=== PATIENT | male | born 1995 | race Caucasian/White ===

== ENCOUNTER 2016-12-06 16:00 | Outpatient (RCR) | payer SELFPAY | END 2016-12-07 | LOC: M OUTALCOH 16:00 | PROVIDERS: ATTEND Psychiatry & Neurology Psychiatry | DX: F10.20 Alcohol dependence, uncomplicated (principal); F17.200 Nicotine dependence, unspecified, uncomplicated ==

== ENCOUNTER 2017-01-03 16:00 | Outpatient (RCR) | payer SELFPAY | END 2017-01-04 | LOC: M OUTALCOH 16:00 | PROVIDERS: ATTEND Psychiatry & Neurology Psychiatry | DX: F10.20 Alcohol dependence, uncomplicated (principal); F17.200 Nicotine dependence, unspecified, uncomplicated ==

== ENCOUNTER 2017-02-02 14:00 | Outpatient (RCR) | payer SELFPAY | END 2017-02-04 | LOC: M OUTALCOH 14:00 | PROVIDERS: ATTEND Psychiatry & Neurology Psychiatry | DX: Z13.9 Encounter for screening, unspecified (principal); F10.20 Alcohol dependence, uncomplicated; F17.200 Nicotine dependence, unspecified, uncomplicated ==

== ENCOUNTER 2017-02-10 14:00 | Outpatient (RCR) | payer SELFPAY | END 2017-03-06 | LOC: M OUTALCOH 14:00 | PROVIDERS: ATTEND Psychiatry & Neurology Psychiatry | DX: Z13.9 Encounter for screening, unspecified (principal); F10.20 Alcohol dependence, uncomplicated; F17.200 Nicotine dependence, unspecified, uncomplicated ==

== ENCOUNTER → 2018-01-22 | Outpatient (REF) | payer BC | LOC: M LAB REF 09:04 | DX: L02.811 Cutaneous abscess of head [any part, except face] (principal) | CPT/HCPCS: 87070; 87186 ==

== ENCOUNTER → 2018-02-23 | Outpatient (REF) | payer BC | LOC: M LAB REF 02-24 11:30 | DX: L02.811 Cutaneous abscess of head [any part, except face] (principal) | CPT/HCPCS: 87186 ==

== ENCOUNTER → 2018-03-28 | Outpatient (REF) | payer BC ==
[2018-03-28 21:25] LABS: CHLAMYDIA DNA AMPLIFICATION NEGATIVE (NEGATIVE); GC DNA AMPLIFICATION NEGATIVE (NEGATIVE)
[2018-03-29 10:14] LABS: HEPATITIS C VIRUS ABY INDEX < 0.0 INDEX (<0.8)
[2018-03-29 10:15] LABS: HIV 1&2 SCREEN CENTAUR NEGATIVE (NEGATIVE)
== END ==
LOC: M SFHCPLAZ 17:23
DX: Z71.1 Person with feared health complaint in whom no diagnosis is made (principal)
CPT/HCPCS: 86803

== ENCOUNTER 2020-12-25 22:29 | Inpatient (IN) | payer BC, OTHER ==
[~2020-12-25] VITALS: Ht 170.2 cm; Wt 70.1 kg
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
[2020-12-25] MEDS ORDERED: NS 1,000 ML IV ONE (23:00)
[2020-12-25 23:20] LABS: BASO % 0.2 % (0.0-1.0); EOS # 0.2 10^3/uL (0.0-0.5); EOS % 1.4 % (0.0-3.0); HEMATOCRIT 42.4 % (42.0-52.0); HEMOGLOBIN 14.4 g/dl (13.5-17.5); LYMPH # 1.7 10^3/uL (1.5-5.0); LYMPH % 13.4 % (24.0-44.0); MEAN CORPUSCULAR HEMOGLOBIN 29.4 pg (27.0-33.0); MEAN CORPUSCULAR VOLUME 86.5 fl (80.0-96.0); MONO # 1.1 10^3/uL (0.0-0.8); MONO % 8.9 % (2.0-8.0); NEUTROPHILS # 9.5 10^3/uL (1.5-8.5); NEUTROPHILS % 75.8 % (36.0-66.0); PLATELET COUNT, AUTOMATED 283 10^3/uL (150-450); WHITE BLOOD COUNT 12.6 10^3/uL (4.0-10.0)
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
[2020-12-25] MEDS ORDERED: VANCOMYCIN HCL 1,500 MG in IV FLUID PLACE HOLDER 1 EA IV ONE (23:45)
[2020-12-25 23:49] LABS: ERYTHROCYTE SEDIMENTATION RATE 27 mm/hr (0-15)
[2020-12-25] MEDS ORDERED: ISOVUE-370 76% 100ML VIAL As Ordered ONE (23:59)
--- NOTE | 2020-12-26 00:29 | REPVR ---
PROCEDURE INFORMATION: Exam: CT Thoracic Spine With Contrast Exam date and time: 12/25/2020 11:45 PM Age: 25 years old Clinical indication: Other: Open sore; Additional info: Superficial abscess, pls use contrast TECHNIQUE: Imaging protocol: Computed tomography images of the thoracic spine with intravenous contrast. Radiation optimization: All CT scans at this facility use at least one of these dose optimization techniques: automated exposure control; mA and/or kV adjustment per patient size (includes targeted exams where dose is matched to clinical indication); or iterative reconstruction. Contrast material: ISO; Contrast volume: 100 ml; Contrast route: INTRAVENOUS (IV); COMPARISON: No relevant prior studies available. FINDINGS: Vertebrae: Incomplete visualization of T1. The remaining thoracic segments are intact. Discs/Spinal canal/Neural foramina: No spinal or foraminal stenosis. Soft tissues: Unremarkable. IMPRESSION: 1. Incomplete visualization of T1. 2. Otherwise negative CT thoracic spine. No fracture or subluxation is evident and no spinal or foraminal stenosis. Electronically signed by: Mauricio Huff On 12/26/2020 00:29:20 AM
[2020-12-26] MEDS ORDERED: VANCOMYCIN HCL 750 MG, VIAL MATE ADAPTER 1 EACH in D5W 250 ML IV ONE ×4 (01:00)
[2020-12-26] MEDS ORDERED: MORPHINE 4 MG/ML 1ML VIAL/SYRINGE (J2270) IV ONE (01:45)
[2020-12-26] MEDS ORDERED: ACETAMINOPHEN TAB 650MG DOSE (2X325MG) PO PRN (03:00)
[2020-12-26] MEDS ORDERED: ANEXSIA, NORCO 7.5MG/325MG TABLET(HYDROCODONE/APAP) PO PRN (03:00)
[2020-12-26] MEDS ORDERED: ACETAMINOPHEN 325 MG TAB PO PRN (03:00)
[2020-12-26] MEDS ORDERED: MORPHINE 2 MG/ML 1ML VIAL (J2270) IV PRN (03:00)
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
[2020-12-26 03:45] VITALS: BP 117/77
[2020-12-26 04:08] LABS: BLOOD UREA NITROGEN 9 MG/DL (7-18); CALCIUM LEVEL 8.7 MG/DL (8.5-10.1); CARBON DIOXIDE LEVEL 25 MEQ/L (21-32); CHLORIDE LEVEL 104 MEQ/L (98-107); CREATININE FOR GFR 0.84 MG/DL (0.70-1.30); GLOMERULAR FILTRATION RATE > 60.0 (>60); GLUCOSE, FASTING 124 MG/DL (70-100); POTASSIUM SERUM 4.1 MEQ/L (3.5-5.1); SODIUM LEVEL 138 MEQ/L (136-145)
[2020-12-26 06:00] VITALS: BP 119/75
[2020-12-26 06:38] LABS: HEMATOCRIT 39.4 % (42.0-52.0); HEMOGLOBIN 13.4 g/dl (13.5-17.5); MEAN CORPUSCULAR HEMOGLOBIN 29.7 pg (27.0-33.0); MEAN CORPUSCULAR VOLUME 87.4 fl (80.0-96.0); PLATELET COUNT, AUTOMATED 279 10^3/uL (150-450); RED BLOOD COUNT 4.51 10^6/uL (4.30-6.10); WHITE BLOOD COUNT 13.2 10^3/uL (4.0-10.0)
[2020-12-26 07:06] LABS: BLOOD UREA NITROGEN 6 MG/DL (7-18); CALCIUM LEVEL 8.1 MG/DL (8.5-10.1); CARBON DIOXIDE LEVEL 27 MEQ/L (21-32); CHLORIDE LEVEL 103 MEQ/L (98-107); CREATININE FOR GFR 0.69 MG/DL (0.70-1.30); GLOMERULAR FILTRATION RATE > 60.0 (>60); GLUCOSE, FASTING 142 MG/DL (70-100); POTASSIUM SERUM 3.8 MEQ/L (3.5-5.1); SODIUM LEVEL 138 MEQ/L (136-145)
[2020-12-26] MEDS ORDERED: PROHANCE 279.3MG/ML 15ML VIAL As Ordered ONE (09:47)
[2020-12-26] MEDS: VANCOMYCIN HCL 1,000 MG, VIAL MATE ADAPTER 1 EACH in D5W 250 ML IV SCH ×2 (11:25→17:22)
[2020-12-26] MEDS: ENOXAPARIN 40MG/0.4ML SYRINGE (J1650 PER 10MG) SC SCH (11:28)
--- NOTE | 2020-12-26 11:40 | REP ---
INDICATION: abscess around T9-T10. Looking for osteo/septic arthris. COMPARISON: Comparison CT study December 26, 2020.. TECHNIQUE: Pre and post gadolinium enhanced MR imaging is acquired. T1 and T2 weighted scans are obtained with and without fat saturation. The gadolinium enhancement dose is 15 mL of intravenous ProHance. FINDINGS: There is a dorsal soft tissue mass with ill-defined margins in the subcutaneous fat layer and extending into and apparently through the overlying skin just to the right of midline at midthoracic spine level.. The area measures 3.8 cm in right to left dimension by 2.2 cm anterior to posterior by 4.8 cm cranial to caudal. There is no underlying bony involvement. Indeed the underlying paraspinal musculature shows normal signal intensity and contour although the edema extends nearly to its dorsal surface. On postcontrast images, lesion does not appear to enhance. I do not see a low T1 high T2 signal intensity center to suggest abscess. This may be a neoplasm eroding through the skin. Cortical and medullary bone signal intensity is normal. No evidence of disc protrusion or other cause of cord compression or spinal stenosis. There is no bony involvement identifiable. IMPRESSION: 3.8 x 2.2 x 4.8 cm soft tissue mass in the dorsal extra-spinal soft tissues. And no MR evidence of bony or muscle involvement. Neoplastic mass versus less likely abscess. <Electronically signed by Dez Chou > 12/26/20 [id number]
[2020-12-26 14:00] VITALS: BP 126/82
[2020-12-26] MEDS: KETOROLAC 30 MG/ML 1ML VIAL IV PRN (18:20)
[2020-12-26] MEDS: CEFEPIME HCL 2 GM in D5W MINI-BAG PLUS 50 ML IV SCH (19:37)
[2020-12-26] MEDS: metroNIDAZOLE 500 MG in IV 1 EA IV SCH (20:35)
[2020-12-26 22:00] VITALS: BP 138/86
[2020-12-27] MEDS: KETOROLAC 30 MG/ML 1ML VIAL IV PRN ×4 (00:28→23:54)
[2020-12-27] MEDS: VANCOMYCIN HCL 1,000 MG, VIAL MATE ADAPTER 1 EACH in D5W 250 ML IV SCH ×4 (01:17→18:49)
[2020-12-27] MEDS: metroNIDAZOLE 500 MG in IV 1 EA IV SCH ×3 (05:23→21:17)
[2020-12-27 06:00] VITALS: BP 112/64
[2020-12-27 06:05] LABS: HEMATOCRIT 39.8 % (42.0-52.0); HEMOGLOBIN 13.1 g/dl (13.5-17.5); MEAN CORPUSCULAR HEMOGLOBIN 29.2 pg (27.0-33.0); MEAN CORPUSCULAR HGB CONC 32.9 g/dl (32.0-36.5); MEAN CORPUSCULAR VOLUME 88.8 fl (80.0-96.0); PLATELET COUNT, AUTOMATED 294 10^3/uL (150-450); RED BLOOD COUNT 4.48 10^6/uL (4.30-6.10)
[2020-12-27 06:25] LABS: BLOOD UREA NITROGEN 8 MG/DL (7-18); CARBON DIOXIDE LEVEL 26 MEQ/L (21-32); CHLORIDE LEVEL 104 MEQ/L (98-107); CREATININE FOR GFR 0.67 MG/DL (0.70-1.30); GLOMERULAR FILTRATION RATE > 60.0 (>60); GLUCOSE, FASTING 126 MG/DL (70-100); SODIUM LEVEL 138 MEQ/L (136-145)
[2020-12-27] MEDS: ENOXAPARIN 40MG/0.4ML SYRINGE (J1650 PER 10MG) SC SCH (08:21)
[2020-12-27] MEDS: CEFEPIME HCL 2 GM in D5W MINI-BAG PLUS 50 ML IV SCH ×2 (08:21→20:30)
[2020-12-27] MEDS ORDERED: LIDOCAINE 1% MDV 20ML VIAL As Ordered ONE (12:59)
[2020-12-27] MEDS ORDERED: LIDOCAINE 1% MDV 20ML VIAL SC SCH (13:00)
[2020-12-27 14:00] VITALS: BP 123/78
--- NOTE | 2020-12-27 17:50 | CR ---
CONSULTATION DATE: 12/27/2020 REQUESTING PHYSCIAN: Dr. Pacheco. REASON FOR CONSULTATION: Abscess of the mid-back. HISTORY OF PRESENT ILLNESS: The patient is a 25-year-old man with a history of use of intravenous heroin. He presented to the emergency department on December 26, 2020 complaining of pain in his mid-back. He reported that there had been a raised tender area develop over several days. He had his friend puncture this and it has been draining a small amount since. He has been using some antibiotic cream, but it has not improved. In the emergency room (ER), he had laboratory studies obtained that showed a white count of 12,[address] scan and MRI obtained that showed a thickened area of inflammation about 3 cm across underlying the inflamed skin. I was asked to evaluate the patient for possible incision and drainage. ALLERGIES: Patient has no reported allergies to drugs. HOME MEDICATIONS: Patient is on no reported prescription medications. He has been using some heroin and methamphetamine. SURGICAL HISTORY: Significant for: 1. Left knee meniscus surgery. 2. Some sutures in his right bowling. PHYSICAL EXAMINATION: Reveals a fairly fit appearing young man who appears somewhat uncomfortable. SKIN: Warm and dry. HEART EXAM: Shows a regular rate and rhythm. LUNGS: Clear. EXAMINATION OF THE BACK: Reveals an approximately 5 x 3.5 cm raised reddened area just to the right of the midline underlying a portion of a tattoo covering the central portion of his back. There are multiple small pustules noted on the skin with areas of skin erosion and sloughing. There is not discreet fluctuance in the center of this area, but it is quite raised, suggesting an underlying abscess. LABORATORY STUDIES: This morning showed a white count of 15,000 (which is slightly raised from 13,000 yesterday), hemoglobin 13, hematocrit 40, platelet count 294,000. Chemistry profile is normal other than a slight elevation in the fasting glucose to 126. IMPRESSION: Skin infection of mid-back with multiple small surface pustules with probable underlying abscess. PLAN: I have recommended to the patient that we proceed with incision and drainage of this area. I suspect it will drain better and heal faster if it is drained. He was counseled regarding the potential risks of the drainage and he had an opportunity to ask questions. He desires to proceed with the drainage and this will be performed today. DEYANIRA
[2020-12-27 22:00] VITALS: BP 129/74
[2020-12-28] MEDS: VANCOMYCIN HCL 1,000 MG, VIAL MATE ADAPTER 1 EACH in D5W 250 ML IV SCH ×4 (01:56→18:57)
[2020-12-28] MEDS: metroNIDAZOLE 500 MG in IV 1 EA IV SCH ×2 (04:09→14:26)
[2020-12-28 06:00] VITALS: BP 132/81
[2020-12-28 06:05] LABS: HEMATOCRIT 38.5 % (42.0-52.0); HEMOGLOBIN 12.9 g/dl (13.5-17.5); MEAN CORPUSCULAR HEMOGLOBIN 29.7 pg (27.0-33.0); MEAN CORPUSCULAR HGB CONC 33.5 g/dl (32.0-36.5); MEAN CORPUSCULAR VOLUME 88.7 fl (80.0-96.0); PLATELET COUNT, AUTOMATED 306 10^3/uL (150-450); RED BLOOD COUNT 4.34 10^6/uL (4.30-6.10); WHITE BLOOD COUNT 10.8 10^3/uL (4.0-10.0)
[2020-12-28 06:22] LABS: BLOOD UREA NITROGEN 10 MG/DL (7-18); CALCIUM LEVEL 8.2 MG/DL (8.5-10.1); CARBON DIOXIDE LEVEL 26 MEQ/L (21-32); CHLORIDE LEVEL 106 MEQ/L (98-107); CREATININE FOR GFR 0.65 MG/DL (0.70-1.30); GLOMERULAR FILTRATION RATE > 60.0 (>60); GLUCOSE, FASTING 108 MG/DL (70-100); POTASSIUM SERUM 4.1 MEQ/L (3.5-5.1); SODIUM LEVEL 138 MEQ/L (136-145)
[2020-12-28] MEDS: CEFEPIME HCL 2 GM in D5W MINI-BAG PLUS 50 ML IV SCH (08:28)
[2020-12-28] MEDS: ENOXAPARIN 40MG/0.4ML SYRINGE (J1650 PER 10MG) SC SCH (08:28)
--- NOTE | 2020-12-28 09:17 | IPN ---
PROGRESS NOTE DATE: 12/28/2020 HISTORY: The patient underwent an incision and drainage of an abscess on the back. He had multiple superficial nearly confluent pustules which were causing areas of skin breakdown with large area of underlying swelling. Vital signs: He has been afebrile over the past 24 hours. His pulse has been in the low 100s but is 86 this morning. Blood pressure is good. Intake and output shows excellent oral intake and urine output. Patient has a dressing over the back wound. He complains of some soreness but it is not unbearable. LABORATORY DATA: This morning, the patient's white blood cell count is 11 which is down from 15 yesterday, hemoglobin 13 with a hematocrit of 38 and the platelet count is 306,000. Chemistry profile is unchanged from the last several days. Microbiology shows that he is growing Staph aureus from his wound culture. IMPRESSION: Patient is showing some improvement with drop in his white blood cell count after incision and drainage of his back abscess. He is growing Staph on preliminary culture and the sensitivities are pending. RECOMMENDATIONS: At this point, I would monitor for the sensitivities on his Staph and adjust his antibiotics accordingly. He will need to continue the local wound probably for a week or two until his wound heals. I will reassess his wound tomorrow. DEYANIRA
[2020-12-28 14:00] VITALS: BP 120/60
[2020-12-28] MEDS: KETOROLAC 30 MG/ML 1ML VIAL IV PRN (16:47)
--- NOTE | 2020-12-28 19:46 | IPNPDOC ---
Date Seen The patient was seen on 12/27/20. Progress Note SUBJECTIVE: Patient comfortable in bed, continues to have back pain and drainage from open wound. No other complaints at this time. PHYSICAL EXAMINATION: VITAL SIGNS: Please see below. GENERAL: No distress HEENT: Normocephalic, atraumatic, moist mucous membranes NECK: Supple CARDIOVASCULAR EXAMINATION: S1, S2, no murmurs RESPIRATORY EXAMINATION: Clear to auscultation, no wheezing ABDOMINAL EXAMINATION: Soft, nontender, nondistended, positive bowel sounds BACK: Large erythematous wound located in the mid thoracic area, raised, with a 2-3 cm opening, apparently drainage, significant tenderness to palpation. EXTREMITIES: Range of motion intact SKIN: No rash NEUROLOGICAL EXAMINATION: Alert and oriented 3, no focal deficits PSYCHIATRIC EXAMINATION: Calm and cooperative LABORATORY DATA, IMAGING STUDIES, MICROBIOLOGY: Please see below. ASSESSMENT AND PLAN: 25-year-old male with past medical history of IV drug use is admitted for cellulitis and abscess in his back. PROBLEMS: 1. Cellulitis with abscess: Located over her mid back Empiric antibiotics, vancomycin, cefepime and Flagyl. Surgery consulted for I&D. Blood cultures pending Pain control 2. IV drug use. Uses heroin and methamphetamines. No signs of withdrawal at this time. DVT prophylaxis: Lovenox GI prophylaxis: Not needed VS, I&O, 24H, Fishbone Vital Signs/I&O Vital Signs Date Time Temp Pulse Resp B/P (MAP) Pulse Ox O2 Delivery O2 Flow Rate FiO2 12/28/20 14:00 98.5 95 18 120/60 (80) 100 Room Air I&O- Last 24 Hours up to 6 AM 12/28/20 06:00 Intake Total 4120 ml Output Total 1425 ml Balance 2695 ml Laboratory Data 24H LABS Laboratory Tests 2 12/28/20 00:15: 12/28/20 05:37: Nucleated Red Blood Cells % (auto) 0.0, Anion Gap 6L, Glomerular Filtration Rate > 60.0, Calcium Level 8.2L CBC/BMP Laboratory Tests 12/28/20 05:37 Microbiology Microbiology 12/27/20 Gram Stain - Final, Resulted 12/27/20 Wound Culture - Preliminary, Resulted Staphylococcus Aureus 12/26/20 Respiratory Virus Panel (PCR) ([facility]) - Final, Complete 12/25/20 Blood Culture - Preliminary, Resulted No Growth after 48 hours. All Specime... 12/25/20 Blood Culture - Preliminary, Resulted No Growth after 48 hours. All Specime... HEBERT PAGE MD Dec 28, 2020 19:46
--- NOTE | 2020-12-28 19:48 | IPNPDOC ---
Date Seen The patient was seen on 12/28/20. Progress Note SUBJECTIVE: Patient comfortable in bed, underwent I&D by general surgery yesterday, no new complaints at this time, tolerating diet. PHYSICAL EXAMINATION: VITAL SIGNS: Please see below. GENERAL: No distress HEENT: Normocephalic, atraumatic, moist mucous membranes NECK: Supple CARDIOVASCULAR EXAMINATION: S1, S2, no murmurs RESPIRATORY EXAMINATION: Clear to auscultation, no wheezing ABDOMINAL EXAMINATION: Soft, nontender, nondistended, positive bowel sounds BACK: Dressing noted over wound, underwent I&D. EXTREMITIES: Range of motion intact SKIN: No rash NEUROLOGICAL EXAMINATION: Alert and oriented 3, no focal deficits PSYCHIATRIC EXAMINATION: Calm and cooperative LABORATORY DATA, IMAGING STUDIES, MICROBIOLOGY: Please see below. ASSESSMENT AND PLAN: 25-year-old male with past medical history of IV drug use is admitted for cellulitis and abscess in his back. PROBLEMS: 1. Cellulitis with abscess: Located over her mid back, status post I&D by general surgery. Wound cultures growing staph aureus. De-escalate antibiotics to vancomycin. Blood cultures negative to date Pain control 2. IV drug use. Uses heroin and methamphetamines. No signs of withdrawal at this time. DVT prophylaxis: Lovenox GI prophylaxis: Not needed VS, I&O, 24H, Fishbone Vital Signs/I&O Vital Signs Date Time Temp Pulse Resp B/P (MAP) Pulse Ox O2 Delivery O2 Flow Rate FiO2 12/28/20 14:00 98.5 95 18 120/60 (80) 100 Room Air l I&O- Last 24 Hours up to 6 AM 12/28/20 06:00 Intake Total 4120 ml Output Total 1425 ml Balance 2695 ml Laboratory Data 24H LABS Laboratory Tests 2 12/28/20 00:15: 12/28/20 05:37: Nucleated Red Blood Cells % (auto) 0.0, Anion Gap 6L, Glomerular Filtration Rate > 60.0, Calcium Level 8.2L CBC/BMP Laboratory Tests 12/28/20 05:37 Microbiology Microbiology 12/27/20 Gram Stain - Final, Resulted 12/27/20 Wound Culture - Preliminary, Resulted Staphylococcus Aureus 12/26/20 Respiratory Virus Panel (PCR) ([facility]) - Final, Complete 12/25/20 Blood Culture - Preliminary, Resulted No Growth after 48 hours. All Specime... 12/25/20 Blood Culture - Preliminary, Resulted No Growth after 48 hours. All Specime... HEBERT PAGE MD Dec 28, 2020 19:48
[2020-12-28 22:00] VITALS: BP 122/58
[2020-12-29] MEDS: VANCOMYCIN HCL 1,000 MG, VIAL MATE ADAPTER 1 EACH in D5W 250 ML IV SCH ×2 (00:40→06:48)
[2020-12-29 06:00] VITALS: BP 136/70
[2020-12-29 06:01] LABS: HEMATOCRIT 39.3 % (42.0-52.0); HEMOGLOBIN 12.9 g/dl (13.5-17.5); MEAN CORPUSCULAR HEMOGLOBIN 29.3 pg (27.0-33.0); MEAN CORPUSCULAR HGB CONC 32.8 g/dl (32.0-36.5); MEAN CORPUSCULAR VOLUME 89.1 fl (80.0-96.0); PLATELET COUNT, AUTOMATED 377 10^3/uL (150-450); RED BLOOD COUNT 4.41 10^6/uL (4.30-6.10); WHITE BLOOD COUNT 7.9 10^3/uL (4.0-10.0)
[2020-12-29 06:33] LABS: BLOOD UREA NITROGEN 7 MG/DL (7-18); CALCIUM LEVEL 8.2 MG/DL (8.5-10.1); CARBON DIOXIDE LEVEL 26 MEQ/L (21-32); CHLORIDE LEVEL 106 MEQ/L (98-107); CREATININE FOR GFR 0.63 MG/DL (0.70-1.30); GLOMERULAR FILTRATION RATE > 60.0 (>60); GLUCOSE, FASTING 98 MG/DL (70-100); POTASSIUM SERUM 4.5 MEQ/L (3.5-5.1); SODIUM LEVEL 140 MEQ/L (136-145); VANCOMYCIN LEVEL TROUGH 12.8 UG/ML (10.0-20.0)
[2020-12-29] MEDS ORDERED: LINEZOLID 600MG TABLET (ZYVOX) PO SCH (09:00)
--- NOTE | 2020-12-29 09:19 | RO ---
OPERATIVE NOTE DATE OF OPERATION: 12/27/2020 PREOPERATIVE DIAGNOSIS: Back abscess. POSTOPERATIVE DIAGNOSIS: Back abscess. PROCEDURE: Incision and drainage of abscess of mid back SURGEON: Siva Candelario MD RESPIRATORY ASSISTANT: ANESTHESIA: 1% lidocaine, local. INDICATION FOR THE PROCEDURE: The patient is a 25-year-old man who had over approximately 4 to 5 days developed a raised infected area on the upper mid back just to the right of the midline. This had become quite painful and he presented to the emergency department for evaluation. Examination shows multiple small nearly confluent pustules on the surface with areas of skin breakdown. There is a significant raised area about 3 to 4 cm in diameter with marked redness and tenderness consistent with an underlying abscess. He is now for incision and drainage. DESCRIPTION OF PROCEDURE: The patient was placed into a left lateral decubitus position. The area was prepped with Betadine. Local anesthesia was achieved transversely across the center of the lesion with 1% Xylocaine. An approximately 2 to 2.5 cm transverse incision was made with an 11 blade. There was some release of purulent fluid. The wound was wicked with a small piece of Betadine gauze. A Culturette was obtained for culture and sensitivity. The patient tolerated the procedure well. A bulky bandage was applied.
[2020-12-29] MEDS: KETOROLAC 30 MG/ML 1ML VIAL IV PRN (09:46)
[2020-12-29] MEDS: ENOXAPARIN 40MG/0.4ML SYRINGE (J1650 PER 10MG) SC SCH (09:54)
--- NOTE | 2020-12-29 10:28 | IPNPDOC ---
Text Note Date of Service The patient was seen on 12/29/20. NOTE General Surgery Dr Candelario. The patient is a 25-year-old male status post I&D of abscess on the mid back 12/27/[address] Candelario. Afebrile, VSS. The patient is sitting up in bed eating breakfast. Lungs clear to auscultation S1-S2 regular rate and rhythm Foam dressing intact over wound mid back, yellowish drainage noted, still with surrounding erythema and tenderness with palpation. 12/27/20 WC MRSA A/P. S/P I/D Mid back abscess. Wound Culture MRSA. Pt transitioned to po Zyvox as per Hospitalist. Continue with wound care. Monitor. VS,Fishbone, I+O VS, Fishbone, I+O Laboratory Tests 12/29/20 05:48 Vital Signs Date Time Temp Pulse Resp B/P (MAP) Pulse Ox O2 Delivery O2 Flow Rate FiO2 12/29/20 06:00 98.0 87 18 136/70 (92) 100 12/28/20 14:00 Room Air I&O- Last 24 Hours up to 6 AM 12/29/20 05:59 Intake Total 3720 ml Output Total 475 ml Balance 3245 ml Attending Note Attending Note Patient had I and D 12/27. C and S today confirms MRSA. PEx shows wound open with significant breakdown along wound edges from multiple small abscesses. WBC normal. Has responded well overall. Wound will likely be slow to heal given degree of local skin breakdown. Antibiotics and discharge per hospitalist. Shu Rosario Dec 29, 2020 10:28 Siva Candelario Dec 29, 2020 22:04
[2020-12-29] MEDS ORDERED: LINE1TAB6 PO (10:49)
--- NOTE | 2020-12-29 11:02 | DS.PDOC ---
Discharge Summary General Date of Admission Dec 26, 2020 at 02:44 Date of Discharge 12/29/20 Attending Physician: HEBERT PAGE MD Discharge Summary PROCEDURES PERFORMED DURING STAY: None. ADMITTING DIAGNOSES: 1. Cellulitis with abscess of mid back, IV drug use. DISCHARGE DIAGNOSES: 1. Cellulitis with abscess of mid back, IV drug use. COMPLICATIONS/CHIEF COMPLAINT: Abscess Of Back,Sepsis. HISTORY OF PRESENT ILLNESS: 25-year-old male with past medical history of IV drug use is admitted for cellulitis and abscess over his mid back. He reports injecting himself with heroin and methamphetamines, noticed a bump on his back which was drained by his friend at home. Pain is swelling continued to worsen with persistent drainage, so he presented to the hospital. Imaging consistent with cellulitis and underlying abscess. General surgery was consulted for I&D. Patient had I&D performed with improvement in pain. Wound cultures are positive for MRSA. Patient is hemodynamically stable today and agrees to follow-up closely with PCP and general surgery in the outpatient setting. The importance of completing his antibiotic regimen and outpatient follow-up were emphasized multiple times, patient understands and agreeable at this time. Patient will be discharged home on Zyvox 600 mg by mouth twice a day, will require a minimum of 2 weeks of antibiotics. Further assessment/duration of antibiotics to be determined by PCP/general surgery on outpatient assessment. If Zyvox is not covered by his insurance, then patient will be discharged on Bactrim. HOSPITAL COURSE: As above. DISCHARGE MEDICATIONS: Please see below. ALLERGIES: Please see below. PHYSICAL EXAMINATION: VITAL SIGNS: Please see below. GENERAL: No distress HEENT: Normocephalic, atraumatic, moist mucous membranes NECK: Supple CARDIOVASCULAR EXAMINATION: S1, S2, no murmurs RESPIRATORY EXAMINATION: Clear to auscultation, no wheezing ABDOMINAL EXAMINATION: Soft, nontender, nondistended, positive bowel sounds EXTREMITIES: Range of motion intact SKIN: No rash NEUROLOGICAL EXAMINATION: Alert and oriented 3, no focal deficits PSYCHIATRIC EXAMINATION: Calm and cooperative LABORATORY DATA: Please see below. IMAGING: CT thorax showing cellulitis with underlying abscess in the thoracic region PROGNOSIS: Fair ACTIVITY: As tolerated. DIET: Regular DISCHARGE PLAN: Follow-up with PCP and general surgery in 1-2 weeks DISPOSITION: Home. DISCHARGE INSTRUCTIONS: 1. Complete antibiotic course, follow up with PCP and general surgery, will require routine blood work for monitoring of infection resolution and possible adverse effects of Zyvox. DISCHARGE CONDITION: Stable. TIME SPENT ON DISCHARGE: Greater than 15 minutes. Vital Signs/I&Os Vital Signs Date Time Temp Pulse Resp B/P (MAP) Pulse Ox O2 Delivery O2 Flow Rate FiO2 12/29/20 06:00 98.0 87 18 136/70 (92) 100 12/28/20 14:00 Room Air I&O- Last 24 Hours up to 6 AM 12/29/20 06:00 Intake Total 3780 ml Output Total 475 ml Balance 3305 ml Laboratory Data Labs 24H Laboratory Tests 2 12/29/20 05:48: Nucleated Red Blood Cells % (auto) 0.0, Anion Gap 8, Glomerular Filtration Rate > 60.0, Calcium Level 8.2L, Vancomycin Level Trough 12.8 CBC/BMP Laboratory Tests 12/29/20 05:48 Microbiology Microbiology 12/27/20 Gram Stain - Final, Complete 12/27/20 Wound Culture - Final, Complete Staph.aureus Methicillin Resis 12/26/20 Respiratory Virus Panel (PCR) ([facility]) - Final, Complete 12/25/20 Blood Culture - Preliminary, Resulted No Growth after 72 hours. All specime... 12/25/20 Blood Culture - Preliminary, Resulted No Growth after 72 hours. All specime... Discharge Medications Scheduled Linezolid (Linezolid) 600 Mg Tablet, 600 MG PO BID Allergies Coded Allergies: No Known Allergies (Unverified , 12/25/20) HEBERT PAGE MD Dec 29, 2020 11:02
== END 2020-12-29 14:28 | disposition home or self-care (01) | DRG 383 ==
LOC: M ED 22:29 → M ED INP 12-26 02:44 → EEVIPCON 12-26 02:44 → ENRESERV 12-26 03:32 → M MSPAV 12-26 03:43
PROVIDERS: ADMIT Internal Medicine; ATTEND Internal Medicine
PROC: 0H96XZZ Drainage of Back Skin, External Approach (ICD-10-PCS; principal; 2020-12-27)
DX: L02.212 Cutaneous abscess of back [any part, except buttock and flank] (principal); F15.10 Other stimulant abuse, uncomplicated

== ENCOUNTER 2022-03-10 22:15 | Inpatient (IN) | payer BC, OTHER ==
[~2022-03-10] VITALS: Ht 170.2 cm; Wt 74.1 kg
[~2022-03-10 22:15] MED LIST: LINE1TAB6 PO
[2022-03-10 23:12] LABS: HEMATOCRIT 46.7 % (42.0-52.0); HEMOGLOBIN 16.5 g/dl (13.5-17.5); MEAN CORPUSCULAR HEMOGLOBIN 31.3 pg (27.0-33.0); MEAN CORPUSCULAR HGB CONC 35.3 g/dl (32.0-36.5); MEAN CORPUSCULAR VOLUME 88.6 fl (80.0-96.0); PLATELET COUNT, AUTOMATED 299 10^3/uL (150-450); RED BLOOD COUNT 5.27 10^6/uL (4.30-6.10); WHITE BLOOD COUNT 9.5 10^3/uL (4.0-10.0)
[2022-03-10] MEDS ORDERED: LORazepam 2 MG/ML VIAL IM STA (23:16)
[2022-03-10 23:37] LABS: AMPHETAMINES LEVEL URINE POSITIVE (NEGATIVE); BARBITURATES URINE NEGATIVE (NEGATIVE); BENZODIAZEPINES URINE NEGATIVE (NEGATIVE); CANNABINOIDS URINE NEGATIVE (NEGATIVE); COCAINE METABOLITE URINE NEGATIVE (NEGATIVE); METHADONE URINE NEGATIVE (NEGATIVE); OPIATES URINE NEGATIVE (NEGATIVE); PHENCYCLIDINE URINE NEGATIVE (NEGATIVE)
[2022-03-10 23:47] LABS: RSV AMPLIFICATION NEGATIVE (NEGATIVE)
[2022-03-10 23:57] LABS: ACETAMINOPHEN LEVEL < 2.0 UG/ML (10.0-30.0); ALBUMIN 4.7 GM/DL (3.2-5.2); ALT/SGPT 33 U/L (12-78); BILIRUBIN,DIRECT 0.1 MG/DL (0.0-0.2); BILIRUBIN,TOTAL 0.7 MG/DL (0.2-1.0); BLOOD UREA NITROGEN 16 MG/DL (7-18); CALCIUM LEVEL 10.1 MG/DL (8.5-10.1); CARBON DIOXIDE LEVEL 25 MEQ/L (21-32); CHLORIDE LEVEL 105 MEQ/L (98-107); ETHYL ALCOHOL (ETHANOL) < 0.003 % (0.000-0.010); GLOMERULAR FILTRATION RATE > 60.0 (>60); GLUCOSE, FASTING 94 MG/DL (70-100); POTASSIUM SERUM 3.9 MEQ/L (3.5-5.1); SALICYLATE LEVEL < 1.7 MG/DL (5.0-30.0); SODIUM LEVEL 141 MEQ/L (136-145); TOTAL PROTEIN 8.3 GM/DL (6.4-8.2)
[2022-03-11] MEDS ORDERED: APAP325T4 PO (11:55)
[2022-03-11] MEDS ORDERED: HOME MED LIST COMPLETE! XX SCH (12:00)
[2022-03-11] MEDS ORDERED: LORazepam 2 MG TAB PO STA (14:58)
[2022-03-12] MEDS ORDERED: MOM 30ML SUSPENSION UDC PO PRN (14:20)
[2022-03-12] MEDS ORDERED: ACETAMINOPHEN TAB 650MG DOSE (2X325MG) PO PRN (14:20)
[2022-03-12] MEDS ORDERED: MAALOX 30 ML SUSP *UDC PO PRN (14:20)
[2022-03-12 16:27] VITALS: BP 117/63
[2022-03-13 07:05] VITALS: BP 132/73
[2022-03-13] MEDS: OLANZapine 5 MG TAB PO SCH ×2 (09:00→21:32)
[2022-03-13] MEDS: OLANZapine ORAL DISINTEGRATING TAB 5MG PO PRN (10:29)
[2022-03-13 18:12] VITALS: BP 122/75
[2022-03-13] MEDS: traZODone 50 MG TAB PO PRN (21:33)
[2022-03-14 06:29] VITALS: BP 132/59
[2022-03-14] MEDS: OLANZapine 5 MG TAB PO SCH ×2 (09:43→21:27)
[2022-03-14] MEDS: SERTRALINE HCL 50 MG TAB PO SCH (13:28)
[2022-03-14 18:16] VITALS: BP 118/70
[2022-03-14] MEDS: traZODone 50 MG TAB PO PRN (21:27)
[2022-03-15 06:38] VITALS: BP 141/72
[2022-03-15 07:45] LABS: ALBUMIN 3.6 GM/DL (3.2-5.2); BILIRUBIN,DIRECT 0.1 MG/DL (0.0-0.2); BILIRUBIN,TOTAL 0.5 MG/DL (0.2-1.0); CHOLESTEROL RISK RATIO 5.093 (<5); TOTAL PROTEIN 6.9 GM/DL (6.4-8.2)
[2022-03-15] MEDS: SERTRALINE HCL 50 MG TAB PO SCH (09:08)
[2022-03-15] MEDS: OLANZapine 5 MG TAB PO SCH ×2 (09:08→21:28)
[2022-03-15 16:12] VITALS: BP 134/66
[2022-03-15] MEDS: traZODone 50 MG TAB PO PRN (21:28)
[2022-03-16 06:13] VITALS: BP 142/86
[2022-03-16] MEDS: SERTRALINE HCL 50 MG TAB PO SCH (08:19)
[2022-03-16] MEDS: OLANZapine 5 MG TAB PO SCH ×2 (08:19→20:12)
[2022-03-16] MEDS: OLANZapine ORAL DISINTEGRATING TAB 5MG PO PRN (15:56)
[2022-03-16 17:13] VITALS: BP 124/60
[2022-03-16] MEDS: traZODone 50 MG TAB PO PRN (20:13)
[2022-03-17 06:28] VITALS: BP 129/70
[2022-03-17] MEDS ORDERED: SERT50TA29 PO (09:25)
[2022-03-17] MEDS ORDERED: OLAN1TAB16 PO (09:25)
[2022-03-17] MEDS: SERTRALINE HCL 50 MG TAB PO SCH (09:36)
[2022-03-17] MEDS: OLANZapine 5 MG TAB PO SCH (09:36)
== END 2022-03-17 11:17 | disposition home or self-care (01) | DRG 751 ==
LOC: M ED 22:15 → OBSVTOIN 03-12 14:19 → EEVIPCON 03-12 14:19 → M ED INP 03-12 14:19 → M PSY 03-12 15:02
PROVIDERS: ADMIT Student in an Organized Health Care Education/Training Program; ATTEND Psychiatry & Neurology Psychiatry
DX: F29 Unspecified psychosis not due to a substance or known physiological condition (principal); R45.851 Suicidal ideations; F15.10 Other stimulant abuse, uncomplicated; F43.9 Reaction to severe stress, unspecified; Z20.822 Contact with and (suspected) exposure to COVID-19

== ENCOUNTER → 2022-03-24 | Outpatient (CLI) | payer OTHER ==
[~2022-03-24] MED LIST changes: +APAP325T4 PO; +OLAN1TAB16 PO; +SERT50TA29 PO
== END ==
LOC: M OUTALCOH 07:36
PROVIDERS: ATTEND Psychiatry & Neurology Psychiatry
DX: Z13.39 Encounter for screening examination for other mental health and behavioral disorders (principal)

== ENCOUNTER 2022-04-01 09:06 | Outpatient (RCR) | payer OTHER | END 2022-04-06 | LOC: M OUTALCOH 09:06 | PROVIDERS: ATTEND Psychiatry & Neurology Psychiatry | DX: F15.20 Other stimulant dependence, uncomplicated (principal); F16.20 Hallucinogen dependence, uncomplicated; F14.10 Cocaine abuse, uncomplicated; F17.200 Nicotine dependence, unspecified, uncomplicated ==

== ENCOUNTER 2022-05-05 08:40 | Outpatient (RCR) | payer OTHER | END 2022-05-06 | LOC: M OUTALCOH 08:40 | PROVIDERS: ATTEND Psychiatry & Neurology Psychiatry | DX: F15.20 Other stimulant dependence, uncomplicated (principal); F16.20 Hallucinogen dependence, uncomplicated; F14.10 Cocaine abuse, uncomplicated; F17.200 Nicotine dependence, unspecified, uncomplicated ==

== ENCOUNTER 2022-06-04 08:40 | Outpatient (RCR) | payer OTHER | END 2022-06-06 | LOC: M OUTALCOH 08:40 | PROVIDERS: ATTEND Psychiatry & Neurology Psychiatry | DX: F15.20 Other stimulant dependence, uncomplicated (principal); F16.20 Hallucinogen dependence, uncomplicated; F14.10 Cocaine abuse, uncomplicated; F17.200 Nicotine dependence, unspecified, uncomplicated ==

== ENCOUNTER 2022-07-04 09:43 | Inpatient (IN) | payer OTHER ==
[~2022-07-04] VITALS: Ht 170.2 cm; Wt 80.7 kg
[2022-07-04] MEDS ORDERED: NICOTINE 21MG/24HR 1 EA TRANSDERMAL TD ONE (10:05)
[2022-07-04 10:57] LABS: HEMATOCRIT 44.6 % (42.0-52.0); HEMOGLOBIN 15.4 g/dl (13.5-17.5); MEAN CORPUSCULAR HEMOGLOBIN 29.3 pg (27.0-33.0); MEAN CORPUSCULAR HGB CONC 34.5 g/dl (32.0-36.5); PLATELET COUNT, AUTOMATED 306 10^3/uL (150-450); RED BLOOD COUNT 5.25 10^6/uL (4.30-6.10); WHITE BLOOD COUNT 9.6 10^3/uL (4.0-10.0)
[2022-07-04 11:29] LABS: RSV AMPLIFICATION NEGATIVE (NEGATIVE)
[2022-07-04 11:45] LABS: ACETAMINOPHEN LEVEL < 2.0 UG/ML (10.0-30.0); ALT/SGPT 18 U/L (12-78); BILIRUBIN,DIRECT 0.2 MG/DL (0.0-0.2); BILIRUBIN,TOTAL 0.6 MG/DL (0.2-1.0); BLOOD UREA NITROGEN 8 MG/DL (7-18); CALCIUM LEVEL 8.8 MG/DL (8.5-10.1); CARBON DIOXIDE LEVEL 26 MEQ/L (21-32); CHLORIDE LEVEL 106 MEQ/L (98-107); CREATININE FOR GFR 0.86 MG/DL (0.70-1.30); ETHYL ALCOHOL (ETHANOL) < 0.003 % (0.000-0.010); GLOMERULAR FILTRATION RATE > 60.0 (>60); GLUCOSE, FASTING 137 MG/DL (70-100); POTASSIUM SERUM 3.5 MEQ/L (3.5-5.1); SALICYLATE LEVEL < 1.7 MG/DL (5.0-30.0); SODIUM LEVEL 138 MEQ/L (136-145); THYROID STIMULATING HORMONE 0.705 uIU/ML (0.358-3.740); TOTAL PROTEIN 7.2 GM/DL (6.4-8.2)
[2022-07-04] MEDS ORDERED: HOME MED LIST COMPLETE! XX SCH (12:15)
[2022-07-04 16:36] LABS: AMPHETAMINES LEVEL URINE POSITIVE (NEGATIVE); BARBITURATES URINE NEGATIVE (NEGATIVE); BENZODIAZEPINES URINE NEGATIVE (NEGATIVE); CANNABINOIDS URINE NEGATIVE (NEGATIVE); COCAINE METABOLITE URINE NEGATIVE (NEGATIVE); METHADONE URINE NEGATIVE (NEGATIVE); OPIATES URINE NEGATIVE (NEGATIVE); PHENCYCLIDINE URINE NEGATIVE (NEGATIVE)
[2022-07-06 16:22] LABS: RSV AMPLIFICATION NEGATIVE (NEGATIVE)
[2022-07-06] MEDS ORDERED: MOM 30ML SUSPENSION UDC PO PRN (18:25)
[2022-07-06] MEDS ORDERED: OLANZapine ORAL DISINTEGRATING TAB 5MG PO PRN (18:25)
[2022-07-06] MEDS ORDERED: ACETAMINOPHEN TAB 650MG DOSE (2X325MG) PO PRN (18:25)
[2022-07-06] MEDS ORDERED: MAALOX 30 ML SUSP *UDC PO PRN (18:25)
[2022-07-06 19:33] VITALS: BP 135/71
[2022-07-06] MEDS: traZODone 50 MG TAB PO PRN (20:52)
[2022-07-07 07:20] VITALS: BP 146/82
[2022-07-07] MEDS ORDERED: IBUPROFEN 800 MG TAB PO PRN (10:00)
[2022-07-07] MEDS: SERTRALINE HCL 50 MG TAB PO SCH (10:39)
[2022-07-07] MEDS: NICOTINE 14 MG/24 HR TRANSDERMAL TD SCH (10:40)
[2022-07-07] MEDS ORDERED: KETOROLAC 30 MG/ML 1ML VIAL IV PRN (15:35)
[2022-07-07 16:29] VITALS: BP 136/60
[2022-07-07] MEDS ORDERED: KETOROLAC 30 MG/ML 1ML VIAL IM PRN (17:00)
[2022-07-07] MEDS: traZODone 50 MG TAB PO PRN (20:23)
[2022-07-08 07:00] VITALS: BP 134/72
[2022-07-08 08:21] LABS: HEMOGLOBIN 15.7 g/dl (13.5-17.5); MEAN CORPUSCULAR HEMOGLOBIN 30.5 pg (27.0-33.0); MEAN CORPUSCULAR HGB CONC 34.9 g/dl (32.0-36.5); MEAN CORPUSCULAR VOLUME 87.4 fl (80.0-96.0); PLATELET COUNT, AUTOMATED 357 10^3/uL (150-450); RED BLOOD COUNT 5.15 10^6/uL (4.30-6.10); WHITE BLOOD COUNT 9.5 10^3/uL (4.0-10.0)
[2022-07-08 08:57] LABS: BLOOD UREA NITROGEN 6 MG/DL (7-18); CALCIUM LEVEL 9.6 MG/DL (8.5-10.1); CARBON DIOXIDE LEVEL 24 MEQ/L (21-32); CHLORIDE LEVEL 102 MEQ/L (98-107); CHOLESTEROL LEVEL 214 MG/DL (<200); CHOLESTEROL RISK RATIO 5.944 (<5); CREATININE FOR GFR 0.76 MG/DL (0.70-1.30); GLOMERULAR FILTRATION RATE > 60.0 (>60); GLUCOSE, FASTING 85 MG/DL (70-100); HDL CHOLESTEROL 36 MG/DL (>40); LDL CHOLESTEROL 131 MG/DL (<100); NON-HDL-C 178 MG/DL; POTASSIUM SERUM 4.4 MEQ/L (3.5-5.1); SODIUM LEVEL 135 MEQ/L (136-145); TRIGLYCERIDES LEVEL 235 MG/DL (<150)
[2022-07-08] MEDS: SERTRALINE HCL 50 MG TAB PO SCH (10:25)
[2022-07-08] MEDS: NICOTINE 14 MG/24 HR TRANSDERMAL TD SCH (10:25)
[2022-07-08 18:17] VITALS: BP 138/68
[2022-07-08] MEDS: traZODone 50 MG TAB PO PRN (20:33)
[2022-07-09 06:33] VITALS: BP 121/74
[2022-07-09] MEDS: SERTRALINE HCL 50 MG TAB PO SCH (09:11)
[2022-07-09] MEDS: NICOTINE 14 MG/24 HR TRANSDERMAL TD SCH (09:11)
[2022-07-09 16:13] VITALS: BP 140/73
[2022-07-10 06:24] VITALS: BP 146/88
[2022-07-10] MEDS: SERTRALINE HCL 50 MG TAB PO SCH (08:39)
[2022-07-10] MEDS: NICOTINE 14 MG/24 HR TRANSDERMAL TD SCH (08:40)
[2022-07-10 16:08] VITALS: BP 129/65
[2022-07-10] MEDS: traZODone 50 MG TAB PO PRN (20:34)
[2022-07-11 06:26] VITALS: BP 136/78
[2022-07-11] MEDS: SERTRALINE HCL 50 MG TAB PO SCH (09:35)
[2022-07-11] MEDS: NICOTINE 14 MG/24 HR TRANSDERMAL TD SCH (09:35)
[2022-07-11 10:05] LABS: BASO % 0.5 % (0.0-1.0); EOS # 0.2 10^3/uL (0.0-0.5); HEMATOCRIT 46.2 % (42.0-52.0); HEMOGLOBIN 16.2 g/dl (13.5-17.5); LYMPH # 2.2 10^3/uL (1.5-5.0); LYMPH % 27.3 % (24.0-44.0); MEAN CORPUSCULAR HGB CONC 35.1 g/dl (32.0-36.5); MEAN CORPUSCULAR VOLUME 85.6 fl (80.0-96.0); MONO # 0.5 10^3/uL (0.0-0.8); MONO % 6.8 % (2.0-8.0); NEUTROPHILS % 62.6 % (36.0-66.0); PLATELET COUNT, AUTOMATED 394 10^3/uL (150-450)
[2022-07-11 16:15] VITALS: BP 131/63
[2022-07-12 06:03] VITALS: BP 118/67
[2022-07-12] MEDS: NICOTINE 14 MG/24 HR TRANSDERMAL TD SCH (07:57)
[2022-07-12] MEDS: SERTRALINE HCL 50 MG TAB PO SCH (07:57)
[2022-07-12 18:12] VITALS: BP 131/71
[2022-07-12] MEDS: traZODone 50 MG TAB PO PRN (20:18)
[2022-07-13 06:38] VITALS: BP 141/78
[2022-07-13] MEDS: NICOTINE 14 MG/24 HR TRANSDERMAL TD SCH (08:26)
[2022-07-13] MEDS: SERTRALINE HCL 50 MG TAB PO SCH (08:27)
[2022-07-13 17:38] VITALS: BP 130/62
[2022-07-13] MEDS: traZODone 50 MG TAB PO PRN (21:09)
[2022-07-14 06:45] VITALS: BP 147/74
[2022-07-14] MEDS: SERTRALINE HCL 25 MG TABLET PO SCH (08:22)
[2022-07-14] MEDS: NICOTINE 14 MG/24 HR TRANSDERMAL TD SCH (08:24)
[2022-07-14] MEDS ORDERED: IBUPROFEN 800 MG TAB PO PRN (13:30)
[2022-07-14] MEDS: traZODone 50 MG TAB PO PRN (20:14)
[2022-07-15 06:30] VITALS: BP 133/74
[2022-07-15] MEDS: NICOTINE 14 MG/24 HR TRANSDERMAL TD SCH (08:28)
[2022-07-15] MEDS: SERTRALINE HCL 25 MG TABLET PO SCH (08:28)
[2022-07-15] MEDS ORDERED: SERT25TA85 PO (10:57)
[2022-07-15] MEDS ORDERED: TRAZ-252 PO (10:57)
[2022-07-15] MEDS ORDERED: ABIL1TAB11 PO (10:57)
[2022-07-15] MEDS ORDERED: SERT-141 PO (10:57)
[2022-07-15] MEDS ORDERED: NICO14PA TD (10:57)
== END 2022-07-15 12:46 | disposition home or self-care (01) | DRG 751 ==
LOC: M ED 09:43 → M ED INP 07-06 09:44 → M PSY 07-06 19:20
PROVIDERS: ADMIT Student in an Organized Health Care Education/Training Program; ATTEND Student in an Organized Health Care Education/Training Program
DX: F33.3 Major depressive disorder, recurrent, severe with psychotic symptoms (principal); F60.89 Other specific personality disorders; F15.951 Other stimulant use, unspecified with stimulant-induced psychotic disorder with hallucinations; Z20.822 Contact with and (suspected) exposure to COVID-19; R45.851 Suicidal ideations; Z91.51 Personal history of suicidal behavior; Z56.0 Unemployment, unspecified; F17.210 Nicotine dependence, cigarettes, uncomplicated; M25.562 Pain in left knee; Z63.5 Disruption of family by separation and divorce

== ENCOUNTER 2022-07-06 09:00 | Outpatient (RCR) | payer OTHER | END 2022-07-07 | LOC: M OUTALCOH 09:00 | PROVIDERS: ATTEND Psychiatry & Neurology Psychiatry | DX: F15.20 Other stimulant dependence, uncomplicated (principal); F16.20 Hallucinogen dependence, uncomplicated; F14.10 Cocaine abuse, uncomplicated; F17.200 Nicotine dependence, unspecified, uncomplicated ==

== ENCOUNTER 2022-08-05 09:00 | Outpatient (RCR) | payer OTHER ==
[~2022-08-05 09:00] MED LIST changes: +ABIL1TAB11 PO; +NICO14PA TD; +SERT-141 PO; +SERT25TA85 PO; +TRAZ-252 PO
== END 2022-08-06 ==
LOC: M OUTALCOH 09:00
PROVIDERS: ATTEND Psychiatry & Neurology Psychiatry
DX: F15.20 Other stimulant dependence, uncomplicated (principal); F16.20 Hallucinogen dependence, uncomplicated; F14.10 Cocaine abuse, uncomplicated; F17.200 Nicotine dependence, unspecified, uncomplicated

== ENCOUNTER → 2022-08-26 | Outpatient (CLI) | payer OTHER | LOC: M SOG 11:14 | PROVIDERS: ATTEND Student in an Organized Health Care Education/Training Program | DX: S83.512A Sprain of anterior cruciate ligament of left knee, initial encounter (principal); M17.12 Unilateral primary osteoarthritis, left knee; X58.XXXA Exposure to other specified factors, initial encounter; Y92.9 Unspecified place or not applicable; Y93.9 Activity, unspecified; Y99.9 Unspecified external cause status ==

== ENCOUNTER 2022-09-01 15:00 | Outpatient (RCR) | payer OTHER | END 2022-09-06 | LOC: M OUTALCOH 15:00 | PROVIDERS: ATTEND Psychiatry & Neurology Psychiatry | DX: F15.10 Other stimulant abuse, uncomplicated (principal); F16.20 Hallucinogen dependence, uncomplicated; F14.10 Cocaine abuse, uncomplicated; F17.200 Nicotine dependence, unspecified, uncomplicated ==

== ENCOUNTER 2022-09-13 11:57 | Inpatient (IN) | payer OTHER ==
[~2022-09-13] VITALS: Ht 170.2 cm; Wt 80.7 kg
[2022-09-13 13:00] LABS: HEMATOCRIT 43.7 % (42.0-52.0); HEMOGLOBIN 15.2 g/dl (13.5-17.5); MEAN CORPUSCULAR HEMOGLOBIN 29.6 pg (27.0-33.0); MEAN CORPUSCULAR HGB CONC 34.8 g/dl (32.0-36.5); MEAN CORPUSCULAR VOLUME 85.2 fl (80.0-96.0); PLATELET COUNT, AUTOMATED 337 10^3/uL (150-450); RED BLOOD COUNT 5.13 10^6/uL (4.30-6.10); WHITE BLOOD COUNT 14.1 10^3/uL (4.0-10.0)
[2022-09-13 13:30] LABS: RSV AMPLIFICATION NEGATIVE (NEGATIVE)
[2022-09-13 13:41] LABS: ACETAMINOPHEN LEVEL < 2.0 UG/ML (10.0-30.0); ALBUMIN 4.4 GM/DL (3.2-5.2); ALT/SGPT 32 U/L (12-78); BILIRUBIN,DIRECT 0.3 MG/DL (0.0-0.2); BLOOD UREA NITROGEN 17 MG/DL (7-18); CALCIUM LEVEL 9.3 MG/DL (8.5-10.1); CARBON DIOXIDE LEVEL 21 MEQ/L (21-32); CHLORIDE LEVEL 105 MEQ/L (98-107); CREATININE FOR GFR 0.92 MG/DL (0.70-1.30); ETHYL ALCOHOL (ETHANOL) < 0.003 % (0.000-0.010); GLOMERULAR FILTRATION RATE > 60.0 (>60); GLUCOSE, FASTING 83 MG/DL (70-100); POTASSIUM SERUM 3.9 MEQ/L (3.5-5.1); SALICYLATE LEVEL < 1.7 MG/DL (5.0-30.0); SODIUM LEVEL 137 MEQ/L (136-145); THYROID STIMULATING HORMONE 0.844 uIU/ML (0.358-3.740); TOTAL PROTEIN 7.7 GM/DL (6.4-8.2)
[2022-09-13 13:52] LABS: AMPHETAMINES LEVEL URINE POSITIVE (NEGATIVE); BARBITURATES URINE NEGATIVE (NEGATIVE); BENZODIAZEPINES URINE NEGATIVE (NEGATIVE); CANNABINOIDS URINE NEGATIVE (NEGATIVE); COCAINE METABOLITE URINE NEGATIVE (NEGATIVE); METHADONE URINE NEGATIVE (NEGATIVE); OPIATES URINE NEGATIVE (NEGATIVE); PHENCYCLIDINE URINE NEGATIVE (NEGATIVE)
[2022-09-13] MEDS ORDERED: ACETAMINOPHEN TAB 650MG DOSE (2X325MG) PO PRN ×2 (17:55→18:20)
[2022-09-13] MEDS ORDERED: OLANZapine ORAL DISINTEGRATING TAB 5MG PO PRN ×2 (17:55→18:20)
[2022-09-13] MEDS ORDERED: MAALOX 30 ML SUSP *UDC PO PRN ×2 (17:55→18:20)
[2022-09-13] MEDS ORDERED: traZODone 50 MG TAB PO PRN ×2 (17:55→18:20)
[2022-09-13] MEDS ORDERED: MOM 30ML SUSPENSION UDC PO PRN ×2 (17:55→18:20)
[2022-09-13] MEDS ORDERED: TRAZ-252 PO (20:31)
[2022-09-13] MEDS ORDERED: SERT25TA21 PO (20:31)
[2022-09-13] MEDS ORDERED: SERT50TA29 PO (20:31)
[2022-09-13] MEDS ORDERED: ARIP1TAB6 PO (20:31)
[2022-09-13] MEDS ORDERED: HOME MED LIST COMPLETE! XX SCH (20:35)
[2022-09-13 21:48] VITALS: BP 140/94
[2022-09-14 16:12] VITALS: BP 134/72
[2022-09-15 06:23] VITALS: BP 136/83
[2022-09-15] MEDS: SERTRALINE HCL 50 MG TAB PO SCH (09:49)
[2022-09-15 16:23] VITALS: BP 133/65
[2022-09-16 06:39] VITALS: BP 121/64
[2022-09-16] MEDS: SERTRALINE HCL 50 MG TAB PO SCH (09:08)
[2022-09-16 18:19] VITALS: BP 128/63
[2022-09-17 06:07] VITALS: BP 123/65
[2022-09-17] MEDS: SERTRALINE HCL 50 MG TAB PO SCH (09:10)
[2022-09-17 16:08] VITALS: BP 112/59
[2022-09-17 16:11] VITALS: BP 130/58
[2022-09-18 06:38] VITALS: BP 128/76
[2022-09-18] MEDS: SERTRALINE 100 MG TAB PO SCH (08:42)
[2022-09-18] MEDS ORDERED: ARIPiprazole MONOHYDRATE 400 MG INJ (ABILIFY)(FREE PSY INPT ONLY) IM ONE (09:00)
[2022-09-18 16:11] VITALS: BP 129/63
[2022-09-19 06:34] VITALS: BP 152/85
[2022-09-19] MEDS: SERTRALINE 100 MG TAB PO SCH (08:55)
[2022-09-19 16:08] VITALS: BP 121/62
[2022-09-20 06:33] VITALS: BP 128/67
[2022-09-20] MEDS: SERTRALINE 100 MG TAB PO SCH (09:29)
[2022-09-20] MEDS ORDERED: ABIL1INJ2 IM (09:35)
[2022-09-20] MEDS ORDERED: TRAZ-252 PO (09:35)
[2022-09-20] MEDS ORDERED: ZOLO100T PO (09:35)
== END 2022-09-20 12:37 | disposition home or self-care (01) | DRG 776 ==
LOC: M ED 11:57 → M ED INP 17:55 → M PSY 20:56
PROVIDERS: ADMIT Psychiatry & Neurology Psychiatry; ATTEND Psychiatry & Neurology Psychiatry
DX: F15.951 Other stimulant use, unspecified with stimulant-induced psychotic disorder with hallucinations (principal); F43.9 Reaction to severe stress, unspecified; F60.9 Personality disorder, unspecified; Z56.0 Unemployment, unspecified; S83.207D Unspecified tear of unspecified meniscus, current injury, left knee, subsequent encounter; D72.829 Elevated white blood cell count, unspecified; Z79.899 Other long term (current) drug therapy; Z20.822 Contact with and (suspected) exposure to COVID-19; Z91.51 Personal history of suicidal behavior; F17.200 Nicotine dependence, unspecified, uncomplicated

== ENCOUNTER 2022-10-05 08:00 | Outpatient (RCR) | payer OTHER ==
[~2022-10-05 08:00] MED LIST changes: +ABIL1INJ2 IM; +ARIP1TAB6 PO; +SERT25TA21 PO; +ZOLO100T PO
== END 2022-10-06 ==
LOC: M OUTALCOH 08:00
PROVIDERS: ATTEND Psychiatry & Neurology Psychiatry
DX: F15.20 Other stimulant dependence, uncomplicated (principal); F16.20 Hallucinogen dependence, uncomplicated; F14.10 Cocaine abuse, uncomplicated; F17.200 Nicotine dependence, unspecified, uncomplicated

== ENCOUNTER 2022-11-02 07:49 | Outpatient (RCR) | payer OTHER ==
[~2022-11-02 07:49] MED LIST changes: -ONDA4TAB6 PO; -OXYC1TAB23 PO
[2022-11-03] MEDS ORDERED: OXYC1TAB23 PO (11:23)
[2022-11-03] MEDS ORDERED: ONDA4TAB6 PO (11:33)
== END 2022-11-06 ==
LOC: M OUTALCOH 07:49
PROVIDERS: ATTEND Psychiatry & Neurology Psychiatry
DX: F15.20 Other stimulant dependence, uncomplicated (principal); F16.20 Hallucinogen dependence, uncomplicated; F14.10 Cocaine abuse, uncomplicated; F17.200 Nicotine dependence, unspecified, uncomplicated

== ENCOUNTER → 2022-11-02 | Outpatient (CLI) | payer OTHER ==
[~2022-11-02] MED LIST changes: +ONDA4TAB6 PO; +OXYC1TAB23 PO
== END ==
LOC: M LABSMTC 09:02
PROVIDERS: ATTEND Anesthesiology
DX: Z01.818 Encounter for other preprocedural examination (principal)

== ENCOUNTER 2022-11-03 10:18 | Day surgery (SDC) | payer OTHER ==
[~2022-11-03] VITALS: Ht 170.2 cm; Wt 87.1 kg
[2022-11-03] MEDS ORDERED: ROCURONIUM BROMIDE 50MG/5ML VIAL As Ordered ONE ×2 (10:42→13:58)
[2022-11-03] MEDS ORDERED: MIDAZOLAM INJ 2MG/2ML VIAL (J2250 PER 1MG) As Ordered ONE (10:42)
[2022-11-03] MEDS ORDERED: SUGAMMADEX SODIUM 500 MG/5 ML VIAL (BRIDION) As Ordered ONE (10:42)
[2022-11-03] MEDS ORDERED: LIDOCAINE 2% 100MG/5ML SDV (FOR ANES.) As Ordered ONE (10:42)
[2022-11-03] MEDS ORDERED: ONDANSETRON 4MG 2ML VIAL As Ordered ONE (10:42)
[2022-11-03] MEDS ORDERED: propofoL 200 MG/20 ML VIAL As Ordered ONE ×2 (10:42→12:27)
[2022-11-03] MEDS ORDERED: fentaNYL 250 MCG/5 ML INJECTION As Ordered ONE (10:42)
[2022-11-03] MEDS ORDERED: ACETAMINOPHEN 1000MG 100ML IV BAG As Ordered ONE (10:42)
[2022-11-03] MEDS ORDERED: LR 1,000 ML IV SCH ×2 (10:45→15:40)
[2022-11-03] MEDS ORDERED: TRANEXAMIC ACID 100 MG/ML 10ML VIAL As Ordered ONE (10:49)
[2022-11-03] MEDS ORDERED: EPINEPHrine 1MG/ML INJ 30ML MD-VIAL As Ordered ONE (10:49)
[2022-11-03] MEDS ORDERED: fentaNYL 100 MCG/2 ML INJECTION IV PRN ×2 (10:55→15:40)
[2022-11-03] MEDS ORDERED: ROPIvacaine 0.5% 30ML VIAL PN ONE (10:55)
[2022-11-03] MEDS ORDERED: EPINEPHrine INJ 1 MG/ML 1ML AMP PN ONE (10:55)
[2022-11-03] MEDS ORDERED: LIDOCAINE 1% SDV 5ML VIAL PN ONE (10:55)
[2022-11-03] MEDS ORDERED: OXYC1TAB23 PO (11:23)
[2022-11-03] MEDS ORDERED: ceFAZolin SOD 2 GM in IV 1 EA IV ONE (11:25)
[2022-11-03] MEDS: MIDAZOLAM INJ 2MG/2ML VIAL (J2250 PER 1MG) IV PRN ×2 (11:26→11:29)
[2022-11-03] MEDS ORDERED: ONDA4TAB6 PO (11:33)
[2022-11-03] MEDS ORDERED: KETOROLAC 60MG 2ML VIAL As Ordered ONE (13:13)
[2022-11-03] MEDS ORDERED: ePHEDrine SULFATE 25 MG/5 ML(5MG/ML) SYRINGE As Ordered ONE (13:16)
[2022-11-03] MEDS ORDERED: HYDROmorphone HCL 2MG/ML 1ML VIAL As Ordered ONE (13:36)
[2022-11-03] MEDS ORDERED: ONDANSETRON 4MG 2ML VIAL IV PRN (15:40)
[2022-11-03] MEDS ORDERED: METOCLOPRAMIDE INJ 10MG/2ML VIAL IV PRN (15:40)
[2022-11-03] MEDS ORDERED: oxyCODONE 5MG TAB PO PRN (15:40)
[2022-11-03] MEDS ORDERED: MORPHINE 2 MG/ML 1ML VIAL IV PRN (15:40)
[2022-11-03 17:35] VITALS: BP 135/75
[2022-11-03] MEDS ORDERED: NS 1,000 ML IV SCH (18:20)
== END 2022-11-03 17:37 | disposition home or self-care (01) ==
LOC: M SDC 10:18
PROVIDERS: ATTEND Student in an Organized Health Care Education/Training Program
DX: M23.612 Other spontaneous disruption of anterior cruciate ligament of left knee (principal); M23.222 Derangement of posterior horn of medial meniscus due to old tear or injury, left knee; M54.50 Low back pain, unspecified; F41.9 Anxiety disorder, unspecified; F32.A Depression, unspecified; F19.20 Other psychoactive substance dependence, uncomplicated; Z79.899 Other long term (current) drug therapy; F17.210 Nicotine dependence, cigarettes, uncomplicated
CPT/HCPCS: 29882; 29888; 64447; C1713; J0131; J0171; J0690; J1100; J1170; J1885; J2250; J2405; J2765; J3010